=== PATIENT | male | born 1950 | race Caucasian/White ===

== ENCOUNTER → 2021-03-05 | Outpatient (CLI) | payer OTHER | END | disposition home or self-care (01) | LOC: RT 15:22 | PROVIDERS: ATTEND Internal Medicine Critical Care Medicine | DX: J44.9 Chronic obstructive pulmonary disease, unspecified (principal) | CPT/HCPCS: 94618 ==

== ENCOUNTER 2021-05-27 16:26 | Emergency (ER) | payer OTHER ==
[~2021-05-27] VITALS: Ht 170.2 cm; Wt 81.8 kg
[2021-05-27] MEDS ORDERED: iohexol 350MG/ML 100ml bottle IV ONE (16:47)
--- NOTE | 2021-05-27 16:47 | NUR ---
IV INFILTRATED DURING INJECTION OF IV CONTRAST FOR THE CTANECK/HEAD. STUDY WAS COMPLETED. A WARM COMPRESS WAS PLACED IMMEDIATELY TO AFFECTED AREA.
--- NOTE | 2021-05-27 17:30 | NUR ---
called to ed to assist in potential transfer for LVO, pt last seen normal wed. caregiver arrived today pt on commode.
[2021-05-27 17:33] LABS: ALANINE AMINOTRANSFERASE 24 U/L (12-78); ALBUMIN 3.2 G/DL (3.4-5.0); ALBUMIN/GLOBULIN RATIO 0.9 (1.1-1.5); ALKALINE PHOSPHATASE 88 IU/L (46-116); ANION GAP 26 (8-16); ASPARTATE AMINO TRANSFERASE 12 U/L (10-37); BILIRUBIN,TOTAL 0.4 MG/DL (0.1-1.0); BLOOD UREA NITROGEN 58 MG/DL (7-18); BUN/CREATININE RATIO 22.6 (5.4-32.0); CALCIUM 9.5 MG/DL (8.5-10.1); CHLORIDE 97 MMOL/L (99-107); CREATININE 2.57 MG/DL (0.60-1.10); POTASSIUM 4.7 MMOL/L (3.5-5.1); SODIUM 135 MMOL/L (135-145); TOTAL PROTEIN 6.8 G/DL (6.4-8.2); eGFR 25 ML/MIN
--- NOTE | 2021-05-27 17:35 | NUR ---
sports agent with Dr. Montelongo from [facility] and [facility]. While discussing his case pts sister Arabella Ricci arrives with new information. She went to his house at 2pm, he was up and answered door. Speaking moving all extremities, walked to bedroom sat on bed he became suddenly became weak, listing to left side, unable to dress, stopped speaking. [address] Keyes updated of new onset symptoms.
[2021-05-27 17:39] LABS: CLARITY,URINE SLIGHTLY CLOUDY (Clear); COLOR,URINE YELLOW (Yellow); GLUCOSE, URINE >=1000 mg/dl (Neg); KETONES,URINE 40 mg/dl (Neg); LEUKOCYTE ESTERASE ,URINE NEGATIVE (Neg); NITRITES, URINE NEGATIVE (Neg); OCCULT BLOOD,URINE SMALL (Neg); PROTEIN,URINE 100 mg/dl (Neg); UROBILINOGEN,URINE 0.2 E.U/dL (0.2-1.0)
[2021-05-27 17:40] LABS: TOTAL CARBON DIOXIDE 12.2 MMOL/L (24-32)
--- NOTE | 2021-05-27 17:40 | NUR ---
Call in to [facility] to give updated information on onset symptoms
[2021-05-27 17:41] LABS: GLUCOSE 571 MG/DL (70-104)
--- NOTE | 2021-05-27 17:42 | NUR ---
PT SISTER ARRIVED AND STATES SHE VISITED PT IN PERSON TODAY AROUND 2PM AND PT WAS NORMAL, WALKING AND TALKING WITH SISTER. INFORMED STROKE NURSE AND CADENA JAKE AND UPGRADED PT TO LEVEL 1 STROKE ALERT
[2021-05-27 17:44] LABS: URINE AMPHETAMINE SCREEN NEGATIVE (Neg); URINE BARBITUATE SCREEN NEGATIVE (Neg); URINE BENZODIAZEPINES SCREEN NEGATIVE (Neg); URINE CANNABINOID SCREEN NEGATIVE (Neg); URINE COCAINE SCREEN NEGATIVE (Neg); URINE METHADONE SCREEN NEGATIVE (Neg); URINE OPIATE SCREEN NEGATIVE (Neg); URINE PHENCYCLIDINE SCREEN NEGATIVE (Neg)
[2021-05-27 17:47] LABS: UA COLLECTION TYPE FOLEY CATH
[2021-05-27 17:49] LABS: BACTERIA,URINE NONE SEEN /HPF (Neg); RBC,URINE 0-2 /HPF (0-2); SQUAMOUS EPITHELIAL CELL,UR FEW /LPF (FEW); WBC,URINE 0-4 /HPF (0-4)
[2021-05-27 17:50] LABS: HYALINE CASTS 0-3 /LPF (NEGATIVE)
--- NOTE | 2021-05-27 17:50 | NUR ---
Dr Walsh returns call, with new information on onset of symptoms she recommends IV tPA .
--- NOTE | 2021-05-27 17:52 | NUR ---
Tpa administered Pt 71 kg bolus dose 6.4 mg admin over at 1752 IV dose 57.4mg admin over 1 hr at 1753 Waste is 36.2mg
[2021-05-27 17:56] LABS: BASOPHILS # (AUTO) 0.1 X10'3 (0-0.2); BASOPHILS % (AUTO) 0.7 % (0-1); EOSINOPHILS % (AUTO) 0.1 % (0-6); HEMATOCRIT 44.4 % (42.0-52.0); HEMOGLOBIN 14.3 g/dl (14.0-17.9); LYMPHOCYTES # (AUTO) 0.4 X10'3 (1.1-4.8); LYMPHOCYTES % (AUTO) 3.6 % (21-51); MEAN CORPUSCULAR HEMOGLOBIN 30.1 PG (27.0-31.0); MEAN CORPUSCULAR HGB CONC 32.3 g/dL (33.0-36.5); MEAN CORPUSCULAR VOLUME 93.3 FL (78-98); MEAN PLATELET VOLUME 10.9 FL (7.4-10.4); MONOCYTES # (AUTO) 0.9 X10'3 (0-0.9); NEUTROPHILS # (AUTO) 10.9 X10'3 (1.8-7.7); NEUTROPHILS % (AUTO) 88.6 % (42-75); RED BLOOD COUNT 4.76 X10'6 (4.70-6.10); RED CELL DISTRIBUTION WIDTH 14.2 % (11.5-14.5); WHITE BLOOD COUNT 12.2 X10'3 (4.5-11.0)
--- NOTE | 2021-05-27 18:07 | NUR ---
Interventional radiologist from [facility] called reviewed case, accepting pt. for transfer.
[2021-05-27 18:15] LABS: PLATELET COUNT 214 X10'3 (140-440)
[2021-05-27] MEDS: LIDOcaine 2% 10ml TOPICAL JELLY (Urojet) TP ONE (18:27)
[2021-05-27] MEDS: alteplase 100MG inj. 100 ML IV ONE (18:57)
[2021-05-27] MEDS: normal saline 50ml IV soln 50 ML IV SCH (18:58)
[2021-05-27] MEDS: normal saline 1000ML IV soln IVB ONE (19:11)
[2021-05-27 19:15] VITALS: BP 142/61
--- NOTE | 2021-05-27 19:39 | NUR ---
[facility] arrived for transport to [facility]. Dr. Campbell accepting
[2021-05-27 20:47] LABS: LARGE PLATELETS FEW; PLATELET ESTIMATE NORMAL
== END 2021-05-28 06:26 ==
LOC: ER 16:26
DX: I66.01 Occlusion and stenosis of right middle cerebral artery (principal); Z20.822 Contact with and (suspected) exposure to COVID-19; E11.10 Type 2 diabetes mellitus with ketoacidosis without coma; Z88.0 Allergy status to penicillin; Z88.8 Allergy status to other drugs, medicaments and biological substances
CPT/HCPCS: 36415; 37195; 70496; 70498; 71045; 80053; 80305; 81001; 83605; 84145; 85008; 85025; 85610; 86885; 86900; 86901; 87040; 87635; 93005; 96360; 99291; C9803; J2997; J3490; J7030; Q9967; 99285